=== PATIENT | male | born 1965 | race Caucasian/White ===

== ENCOUNTER → 2020-07-24 15:59 | Outpatient (BNVA) | payer OTHER, SELFPAY | PROVIDERS: PCP Internal Medicine; Visit Provider Internal Medicine | DX: Z76.89 Persons encountering health services in other specified circumstances (principal) ==

== ENCOUNTER → 2020-08-21 15:50 | Outpatient (BNVA) | payer OTHER, SELFPAY | PROVIDERS: Visit Provider Internal Medicine | DX: F11.99 Opioid use, unspecified with unspecified opioid-induced disorder (principal) | CPT/HCPCS: 80305 ==

== ENCOUNTER → 2020-09-21 10:10 | Outpatient (BNVA) | payer OTHER, SELFPAY | PROVIDERS: Visit Provider Internal Medicine | DX: Z76.89 Persons encountering health services in other specified circumstances (principal) ==

== ENCOUNTER 2020-09-22 06:59 | Emergency (ER) | payer OTHER, SELFPAY ==
--- NOTE | 2020-09-22 07:08 | ED_ITS ---
HPI - URI/Sore Throat General Chief Complaint: Upper Respiratory Symptoms Stated Complaint: FEVER,COUGH Time Seen by Provider: 09/22/20 07:06 Source: patient Mode of arrival: ambulatory Limitations: no limitations History of Present Illness HPI Narrative: patient was just seen over at our [facility] testing area came to ED as he is not feeling well and wanted to be evaluated MD elicited complaint: cough Pertinent past history: other (hx of bronchitis) Onset (ago): day(s) (since last Monday) Consistency: constant Severity: severe Exacerbating factors: exertion and supine positioning Relieving factors: other (states his 5 year old albuterol INH has helped a little) Associated symptoms: chills, cough, shortness of breath, nausea and vomiting Related Data Home Medications Medication Instructions Recorded Confirmed acetaminophen 325 mg capsule 325 mg PO QID PRN 07/20/20 simvastatin 40 mg tablet 40 mg PO BEDTIME 07/20/20 Previous Rx's Medication Instructions Recorded buprenorphine 8 mg-naloxone 2 mg 2 film SUBLINGUAL DAILY 28 Days 09/21/20 sublingual film #56 ea albuterol sulfate 2 puff INHALATION Q4-6H PRN #6.7 g 09/22/20 azithromycin See Rx Instructions .ROUTE 09/22/20 .COMPLEX #6 tab benzonatate [Tessalon Perles] 100 mg PO TID PRN #30 cap 09/22/20 hydrocodone-homatropine 5 ml PO Q6H PRN #60 ml 09/22/20 [Hydrocodone Compound] prednisone 40 mg PO DAILY 5 Days #10 tab 09/22/20 Allergies Allergy/AdvReac Type Severity Reaction Status Date / Time No Known Allergies Allergy Verified 09/22/20 07:55 [No Known Allergies*] latex tape Allergy Unknown Unknown Uncoded 09/22/20 07:55 Review of Systems Review of Systems: Constitutional : No Fever, pos Chills ENT/Mouth : No sore throat, No Rhinorrhea, No Swallowing Difficulty Eyes: No Eye Pain, No Swelling, No Redness Cardiovascular : No Chest Pain, positive SOB, No Orthopnea, no Edema Respiratory : pos Cough, pos Sputum, pos Wheezing, positive dyspnea Gastrointestinal : pos Nausea, pos Vomiting, No Diarrhea, No abdominal Pain, No Hematochezia, No Melena Genitourinary : No Dysuria, No Urinary Frequency, No Hematuria Musculoskeletal : No joint pain, pos Myalgias Skin : No Skin Lesions, No rash Neuro : No Weakness, No Numbness, No Dizziness, No Headache Psych : No Anxiety/Panic, No Depression Heme/Lymph: No Bruising, No Lymphadenopathy Endocrine : No Polyuria, No Polydipsia All other systems reviewed and are negative [facility] Past Medical History Attestation statement: The following information was validated with the patient. Medical History Opioid use disorder Family History Family History (Updated 07/20/20 @ 18:49 by Willy Valenzuela [facility]) Father Cancer Diabetes Mother No problems noted. Brother No problems noted. Son No problems noted. Social History Social History (Updated 09/22/20 @ 07:58 by Pia Moses DO) Smoking Status: Current every day smoker Substance Use Type: Former Substance User Physical Exam Vital Signs: Vital Signs: Last Vital Signs Temp 99.8 F 09/22/20 07:52 Pulse 92 09/22/20 08:10 Resp 20 09/22/20 07:52 BP 153/85 H 09/22/20 07:52 Pulse Ox 93 09/22/20 07:52 Body Mass Index 32.5 Appearance: Alert. Oriented X3. No acute distress. Eyes: Pupils equal, round and reactive to light. ENT: Pharynx normal. Neck: Normal inspection. Neck supple. CVS: Normal heart rate and rhythm. Pulses normal. Respiratory: No respiratory distress. Breath sounds diminished with rhonchi noted Abdomen: Soft and nontender. Skin: Skin warm and dry. Normal skin color. Normal skin turgor. Extremities: No lower extremity edema. No calf ttp Neuro: Oriented X 3. No motor deficit. No sensory deficit. Course Course Course Narrative: no hypoxia, stable for DC at this time MDM - URI/Sore Throat MDM Narrative Medical decision making narrative: 55 yo male with smoking history here with almost 7 days of cough and URI symptoms - 93% on RA, has rhonchi will need CXR, albuterol INH, PO steroids, already had COVID swab, he has no hypoxia at this time and requires no supplemental O2 anticipate DC home after supportive medications Discharge Plan Discharge Clinical Impression: Bronchitis, Acute viral syndrome Patient Disposition: Home, Self-Care Instructions: Viral Syndrome (ED), COVID-19 (Coronavirus Disease 2019) (ED) Additional Instructions: return to ED for any worsening symptoms or concerns you were tested for COVID we will call you with results in 2 to 4 days, wear a mask, socially distance Prescriptions: New prednisone 20 mg tablet 40 mg PO DAILY 5 Days Qty: 10 RF: 0 albuterol sulfate 90 mcg/actuation HFA aerosol inhaler 2 puff inhalation Q4-6H PRN (Reason: shortness of breath or wheezing) Qty: 6.7 RF: 0 benzonatate [Tessalon Perles] 100 mg capsule 100 mg PO TID PRN (Reason: cough) Qty: 30 RF: 0 azithromycin 250 mg tablet See Rx Instructions .ROUTE .COMPLEX Qty: 6 RF: 0 hydrocodone-homatropine [Hydrocodone Compound] 5-1.5 mg/5 mL syrup 5 ml PO Q6H PRN (Reason: cough) Qty: 60 RF: 0 No Action buprenorphine-naloxone [Suboxone] 8-2 mg film 2 film sublingual DAILY 28 Days Qty: 56 RF: 0 Stand Alone Forms: Work/School Release
[2020-09-22 07:52] VITALS: BP 153/85; PULSE 92; RESP 20; TEMP 37.7; O2SAT 93; BMI 32.5
--- NOTE | 2020-09-22 07:54 | XR_ITS ---
EXAMINATION: XR CHEST CLINICAL INFORMATION: Cough COMPARISON: Chest radiographs 04/25/2018, 01/05/2012 TECHNIQUE: Portable upright AP view of the chest was obtained. FINDINGS: There are low lung volumes with inspiration to the eighth posterior intercostal space. There is no lobar or segmental airspace consolidation. Mild coarsening of the bronchiolar markings is seen. There are no definite groundglass opacities. The costophrenic sulci are clear. The heart is normal in size. The hilar and mediastinal contours and bony structures are unremarkable. XR/XR chest 1V IMPRESSION: 1. Coarsening bronchiolar markings. Low lung volumes. No hyperinflation. 2. No airspace consolidation or definite groundglass opacities.
[2020-09-22] MEDS: Albuterol Sulfate 90 MCG 8 GM INHALER 4 PUFF INHALE (08:09)
[2020-09-22 08:10] VITALS: PULSE 92; O2SAT 93
[2020-09-22] MEDS: Acetaminophen 325 MG TABLET 650 MG PO (08:10)
[2020-09-22] MEDS: predniSONE 20 MG TABLET 60 MG PO (08:10)
[2020-09-22 08:41] VITALS: PULSE 88; RESP 18; O2SAT 93
== END 2020-09-22 08:47 | disposition home or self-care (01) ==
LOC: HO.ED 06:59
PROVIDERS: Emergency Provider Emergency Medicine; Visit Provider Internal Medicine
DX: J20.6 Acute bronchitis due to rhinovirus (principal); B34.9 Viral infection, unspecified; R50.9 Fever, unspecified; R05 Cough; Z20.828 Contact with and (suspected) exposure to other viral communicable diseases; Z79.899 Other long term (current) drug therapy; F17.200 Nicotine dependence, unspecified, uncomplicated; Z71.6 Tobacco abuse counseling
CPT/HCPCS: 71045; 94640; 99282; 99284; C9803; U0003

== ENCOUNTER → 2020-10-19 15:57 | Outpatient (BNVA) | payer OTHER, SELFPAY | PROVIDERS: Visit Provider Internal Medicine | DX: Z76.89 Persons encountering health services in other specified circumstances (principal) ==

== ENCOUNTER → 2020-11-16 15:49 | Outpatient (BNVA) | payer OTHER, SELFPAY | PROVIDERS: Visit Provider Internal Medicine | DX: F11.99 Opioid use, unspecified with unspecified opioid-induced disorder (principal) | CPT/HCPCS: 80305 ==

== ENCOUNTER → 2020-12-14 14:04 | Outpatient (BNVA) | payer OTHER, SELFPAY | PROVIDERS: Visit Provider Internal Medicine | DX: Z51.81 Encounter for therapeutic drug level monitoring (principal) ==

== ENCOUNTER → 2021-01-11 15:49 | Outpatient (BNVA) | payer OTHER, SELFPAY | PROVIDERS: Visit Provider Internal Medicine | DX: F11.99 Opioid use, unspecified with unspecified opioid-induced disorder (principal) | CPT/HCPCS: 80305 ==

== ENCOUNTER 2021-02-03 09:05 | Outpatient (REF) | payer OTHER, SELFPAY ==
[2021-02-03 09:43] LABS: COVID-19 Test Positive (Negative); IDNOW Serial# 55D5AD1C
== END 2021-02-03 09:06 | disposition home or self-care (01) ==
LOC: HO.LAB 09:05
PROVIDERS: Visit Provider Internal Medicine
DX: Z20.822 Contact with and (suspected) exposure to COVID-19 (principal)
CPT/HCPCS: 36415; 87635; C9803

== ENCOUNTER → 2021-03-08 15:35 | Outpatient (BNVA) | payer OTHER, SELFPAY | PROVIDERS: Visit Provider Internal Medicine | DX: F11.99 Opioid use, unspecified with unspecified opioid-induced disorder (principal) | CPT/HCPCS: 80305 ==

== ENCOUNTER → 2021-05-03 15:50 | Outpatient (BNVA) | payer OTHER, SELFPAY | PROVIDERS: Visit Provider Internal Medicine | DX: Z51.81 Encounter for therapeutic drug level monitoring (principal); F11.99 Opioid use, unspecified with unspecified opioid-induced disorder | CPT/HCPCS: 80305 ==

== ENCOUNTER 2021-06-01 10:06 | Outpatient (REF) | payer OTHER, SELFPAY ==
[2021-06-01 11:27] LABS: MANUAL DIFF FLAG NO
[2021-06-01 11:34] LABS: Basophils Absolute Auto 0.1 X10*3/uL (0.0-0.2); Basophils Percent Auto 0.6 % (0-2); Eosinophils Absolute Auto 0.7 X10*3/uL (0.0-0.4); Eosinophils Percent Auto 8.3 % (0-4); Hematocrit 45.2 % (42-52); Hemoglobin 15.7 g/dl (14.0-18.0); Imm Gran Abs Auto 0.02 X10*3/uL (0.00-0.03); Imm Gran Pct Auto 0.2 % (0.0-0.4); Lymphocytes Absolute Auto 2.8 X10*3/uL (1.2-4.9); Lymphocytes Percent Auto 30.9 % (20-40); Mean Corpuscular HGB Conc 34.7 g/dl (31.0-36.0); Mean Corpuscular Hemoglobin 31.2 pg (27.0-33.0); Mean Corpuscular Volume 89.7 fL (80-98); Mean Platelet Volume 10.2 fL (9.4-12.4); Monocytes Absolute Auto 0.8 X10*3/uL (0.1-1.2); Monocytes Percent Auto 8.4 % (2-11); Neutrophils Absolute Auto 4.6 X10*3/uL (2.0-8.3); Neutrophils Percent Auto 51.6 % (45-73); Platelet Count 307 X10*3/uL (160-400); Red Blood Count 5.04 X10*6/uL (4.60-5.80); Red Cell Distribution Width 12.7 % (11.0-16.0); White Blood Count 8.9 X10*3/uL (4.8-10.8)
[2021-06-01 11:59] LABS: Alanine Aminotransferase 35 U/L (0-40); Alkaline Phosphatase 86 U/L (39-117); Anion Gap 13 (12-20); Aspartate Amino Transferase 33 U/L (5-37); Bilirubin Direct 0.4 mg/dL (0.0-0.5); Blood Urea Nitrogen 15 mg/dL (9-16); Carbon Dioxide 26 mmol/L (22-29); Chloride 104 mmol/L (96-108); Cholesterol 222 mg/dL; Estimated Glomerular Filt Rate > 60; Glucose Fasting 104 mg/dL (60-99); HDL Cholesterol 31 mg/dL; LDL Cholesterol Calculated 158 mg/dl; Potassium 4.4 mmol/L (3.3-5.1); Sodium 139 mmol/L (135-145); Total Protein 6.9 g/dL (6.5-8.0); Triglycerides 165 mg/dL
[2021-06-01 12:06] LABS: Prostate Specific Antigen 1.07 ng/mL (<0.05-4.0)
== END 2021-06-01 10:07 | disposition home or self-care (01) ==
LOC: HO.HMGCLDS 10:06
PROVIDERS: PCP Internal Medicine; Visit Provider Internal Medicine
DX: Z00.00 Encounter for general adult medical examination without abnormal findings (principal); Z12.5 Encounter for screening for malignant neoplasm of prostate; R53.83 Other fatigue; E78.5 Hyperlipidemia, unspecified
CPT/HCPCS: 36415; 80051; 80061; 80076; 82565; 82947; 84153; 84520; 85025

== ENCOUNTER → 2021-07-02 15:46 | Outpatient (BNVA) | payer OTHER, SELFPAY | PROVIDERS: Visit Provider Internal Medicine | DX: F11.20 Opioid dependence, uncomplicated (principal); Z51.81 Encounter for therapeutic drug level monitoring; Z79.899 Other long term (current) drug therapy | CPT/HCPCS: 80305 ==

== ENCOUNTER → 2021-08-27 15:54 | Outpatient (BNVA) | payer OTHER, SELFPAY | PROVIDERS: Visit Provider Internal Medicine | DX: Z51.81 Encounter for therapeutic drug level monitoring (principal); F11.90 Opioid use, unspecified, uncomplicated | CPT/HCPCS: 80305 ==

== ENCOUNTER 2021-09-23 06:07 | Outpatient (REF) | payer OTHER, SELFPAY ==
[2021-09-23 11:45] LABS: Alanine Aminotransferase 33 U/L (0-40); Alkaline Phosphatase 87 U/L (39-117); Aspartate Amino Transferase 28 U/L (5-37); Bilirubin Direct 0.5 mg/dL (0.0-0.5); Bilirubin Total 1.5 mg/dL (0.0-1.0); Cholesterol 155 mg/dL; HDL Cholesterol 29 mg/dL; LDL Cholesterol Calculated 96 mg/dl; Total Protein 6.9 g/dL (6.5-8.0); Triglycerides 152 mg/dL
[2021-09-23 11:57] LABS: Estimated Average Glucose 123 mg/dL; Hemoglobin A1c % 5.9 %
== END 2021-09-23 06:08 | disposition home or self-care (01) ==
LOC: HO.HMGCLDS 06:07
PROVIDERS: PCP Internal Medicine; Visit Provider Internal Medicine
DX: E78.5 Hyperlipidemia, unspecified (principal); E78.00 Pure hypercholesterolemia, unspecified; E11.9 Type 2 diabetes mellitus without complications
CPT/HCPCS: 36415; 80061; 80076; 83036

== ENCOUNTER 2021-10-18 11:34 | Outpatient (REF) | payer OTHER, SELFPAY ==
[2021-10-18 14:38] LABS: COVID-19 Test Negative (Negative); IDNOW Serial# 16C4AD1C
== END 2021-10-18 11:35 | disposition home or self-care (01) ==
LOC: HO.LAB 11:34
PROVIDERS: Visit Provider Internal Medicine
DX: Z20.822 Contact with and (suspected) exposure to COVID-19 (principal)
CPT/HCPCS: 36415; 87635; C9803

== ENCOUNTER → 2021-10-27 15:37 | Outpatient (BNVA) | payer OTHER, SELFPAY | PROVIDERS: Visit Provider Internal Medicine | DX: F11.20 Opioid dependence, uncomplicated (principal); Z51.81 Encounter for therapeutic drug level monitoring; Z79.899 Other long term (current) drug therapy | CPT/HCPCS: 80305 ==

== ENCOUNTER → 2021-12-22 15:46 | Outpatient (BNVA) | payer OTHER, SELFPAY | PROVIDERS: Visit Provider Internal Medicine | DX: F11.90 Opioid use, unspecified, uncomplicated (principal); Z91.040 Latex allergy status; Z51.81 Encounter for therapeutic drug level monitoring | CPT/HCPCS: 80305 ==

== ENCOUNTER → 2022-02-16 15:50 | Outpatient (BNVA) | payer OTHER, SELFPAY | PROVIDERS: Visit Provider Internal Medicine | DX: Z51.81 Encounter for therapeutic drug level monitoring (principal); F11.20 Opioid dependence, uncomplicated | CPT/HCPCS: 80305 ==

== ENCOUNTER → 2022-04-13 15:06 | Outpatient (BNVA) | payer OTHER, SELFPAY | PROVIDERS: Visit Provider Internal Medicine | DX: Z51.81 Encounter for therapeutic drug level monitoring (principal); F11.20 Opioid dependence, uncomplicated | CPT/HCPCS: 80305 ==

== ENCOUNTER → 2022-11-23 15:44 | Outpatient (BNVA) | payer OTHER, SELFPAY | PROVIDERS: PCP Internal Medicine; Visit Provider Nurse Practitioner Psychiatric/Mental Health | DX: Z51.81 Encounter for therapeutic drug level monitoring (principal); F11.20 Opioid dependence, uncomplicated | CPT/HCPCS: 80305 ==

== ENCOUNTER → 2023-01-18 15:57 | Outpatient (BNVA) | payer OTHER, SELFPAY | PROVIDERS: PCP Internal Medicine; Visit Provider Nurse Practitioner Psychiatric/Mental Health | DX: F11.20 Opioid dependence, uncomplicated (principal); Z51.81 Encounter for therapeutic drug level monitoring; Z79.899 Other long term (current) drug therapy | CPT/HCPCS: 80305 ==

== ENCOUNTER 2023-03-13 15:52 | Outpatient (REF) | payer OTHER, SELFPAY ==
[2023-03-13 18:25] LABS: Alanine Aminotransferase 40 U/L (0-40); Albumin Level 4.4 g/dL (3.5-5.0); Alkaline Phosphatase 95 U/L (39-117); Aspartate Amino Transferase 32 U/L (5-37); Bilirubin Direct 0.2 mg/dL (0.0-0.5); Bilirubin Total 0.8 mg/dL (0.0-1.0); Total Protein 6.7 g/dL (6.5-8.0)
== END 2023-03-13 15:53 | disposition home or self-care (01) ==
LOC: HO.LAB 15:52
PROVIDERS: PCP Internal Medicine; Visit Provider Nurse Practitioner Psychiatric/Mental Health
DX: Z79.899 Other long term (current) drug therapy (principal)
CPT/HCPCS: 36415; 80076

== ENCOUNTER → 2023-03-15 15:59 | Outpatient (BNVA) | payer OTHER, SELFPAY | PROVIDERS: PCP Internal Medicine; Visit Provider Nurse Practitioner Psychiatric/Mental Health | DX: Z51.81 Encounter for therapeutic drug level monitoring (principal); Z79.899 Other long term (current) drug therapy ==

== ENCOUNTER 2023-05-17 15:43 | Outpatient (AMB) | payer OTHER, SELFPAY ==
[2023-05-17 15:52] VITALS: BP 134/82; O2SAT 96
--- NOTE | 2023-05-17 15:52 | A.OFFVIS_ITS ---
Intake Vital Signs 05/17/23 15:52 BP 134/82 Blood Pressure Location Lt brachial Position Sitting Pulse Oximetry (%) 96 Intake Visit Reasons: MAT Visit Allergies No Known Allergies [No Known Allergies*] Allergy (Verified 03/15/23 16:10) latex tape Allergy (Unknown, Uncoded 03/15/23 16:10) Unknown HPI MAT Visit HPI Details Patient presents for follow up Currently prescribed Suboxone 8mg BID Tolerating dose No questions or concerns at this time PFSH Medical History High cholesterol Opioid use disorder Surgical History History of hand surgery History of nephrectomy, left Family History Father Cancer Diabetes Mother No problems noted. Brother No problems noted. Son No problems noted. Social History Substance Use Type: Former Substance User Review of Systems Const Reports as per HPI and Reports no additional complaints Physical Exam Vital Signs: Last Vital Signs BP 134/82 05/17/23 15:52 Pulse Ox 96 05/17/23 15:52 Const General: cooperative, healthy appearing, comfortable, well developed and alert Nutritional Appearance: well nourished Orientation/consciousness: patient oriented x3 Limitations: no limitations Neuro General: patient oriented x3 Psych Appearance: well kempt Mental Status: mental status grossly normal Speech and movement: Normal speech and movement present Affect: normal affect Attitude: cooperative Thought process: Normal thought process present Thought content: Normal thought content present Insight: Good insight present (Psych) Judgement: Good judgement present (Psych) Assessment & Plan Assessment & Plan (1) Opioid use disorder, moderate, in sustained remission: Code(s): F11.21 - Opioid dependence, in remission Plan: * continue suboxone at current dose * follow up 8 weeks Medications: Refilled buprenorphine-naloxone 8-2 mg (Suboxone) 1 film sublingual BID 60 ea 1RF 30 days Coding Level of Care Code Est Pt Level 3 (06747) Diagnoses Opioid use disorder, moderate, in sustained remission F11.21
== END 2023-05-17 16:45 | disposition home or self-care (01) ==
LOC: HO.HCC 15:43
PROVIDERS: PCP Internal Medicine; Visit Provider Nurse Practitioner Psychiatric/Mental Health
DX: F11.21 Opioid dependence, in remission (principal)
CPT/HCPCS: 99213

== ENCOUNTER → 2023-05-17 15:43 | Outpatient (BNVA) | payer OTHER, SELFPAY | PROVIDERS: PCP Internal Medicine; Visit Provider Nurse Practitioner Psychiatric/Mental Health | DX: Z51.81 Encounter for therapeutic drug level monitoring (principal); Z79.899 Other long term (current) drug therapy ==

== ENCOUNTER 2023-07-24 15:43 | Outpatient (AMB) | payer OTHER, SELFPAY ==
--- NOTE | 2023-07-24 15:43 | A.OFFVIS_ITS ---
Intake Vital Signs 07/24/23 15:47 BP 132/78 Blood Pressure Location Lt radial Position Sitting Pulse 84 Pulse Source Pulse Oximeter Pulse Oximetry (%) 96 Oxygen Delivery Method Room Air Intake Visit Reasons: MAT Visit Intake Note: the patient presents for a mat visit [employer] Manager Required: No Allergies No Known Allergies [No Known Allergies*] Allergy (Verified 07/24/23 15:48) latex tape Allergy (Unknown, Uncoded 07/24/23 15:48) Unknown Do you need a note to return to daycare/school/sports/work: No HPI MAT Visit HPI Details Pt presents for OUD treatment follow up Currently being prescribed Suboxone 8mg BID Denies any side effects related to medication no questions or concerns at this time PFSH Medical History High cholesterol Opioid use disorder Surgical History History of hand surgery History of nephrectomy, left Family History Father Cancer Diabetes Mother No problems noted. Brother No problems noted. Son No problems noted. Social History Substance Use Type: Former Substance User Review of Systems Const Reports as per HPI and Reports no additional complaints Physical Exam Vital Signs: Last Vital Signs Pulse 84 07/24/23 15:47 BP 132/78 07/24/23 15:47 Pulse Ox 96 07/24/23 15:47 Oxygen Delivery Method Room Air 07/24/23 15:47 Const General: cooperative, healthy appearing, comfortable, well developed and alert Nutritional Appearance: well nourished Orientation/consciousness: patient oriented x3 Limitations: no limitations Neuro General: patient oriented x3 Psych Appearance: well kempt Mental Status: mental status grossly normal Speech and movement: Normal speech and movement present Affect: normal affect Attitude: cooperative Thought process: Normal thought process present Thought content: Normal thought content present Insight: Good insight present (Psych) Judgement: Good judgement present (Psych) Assessment & Plan Assessment & Plan (1) Opioid use disorder, moderate, in sustained remission: Code(s): F11.21 - Opioid dependence, in remission Plan: * continue suboxone at current dose * follow up 8 weeks Medications: Refilled buprenorphine-naloxone 8-2 mg (Suboxone) 1 film sublingual BID 30 days 60 ea 1RF Coding Level of Care Code Est Pt Level 3 (50599) Diagnoses Opioid use disorder, moderate, in sustained remission F11.21
[2023-07-24 15:47] VITALS: BP 132/78; PULSE 84; O2SAT 96
== END 2023-07-24 16:09 | disposition home or self-care (01) ==
LOC: HO.HCC 15:43
PROVIDERS: PCP Internal Medicine; Visit Provider Nurse Practitioner Psychiatric/Mental Health
DX: F11.21 Opioid dependence, in remission (principal)
CPT/HCPCS: 99213

== ENCOUNTER → 2023-07-24 15:43 | Outpatient (BNVA) | payer OTHER, SELFPAY | PROVIDERS: PCP Internal Medicine; Visit Provider Nurse Practitioner Psychiatric/Mental Health | DX: Z51.81 Encounter for therapeutic drug level monitoring (principal); Z79.899 Other long term (current) drug therapy ==

== ENCOUNTER 2023-10-17 15:49 | Outpatient (AMB) | payer OTHER, SELFPAY ==
--- NOTE | 2023-10-17 15:52 | MHC.AM.SUB ---
Intake Vital Signs 10/17/23 16:00 BP 136/64 Blood Pressure Location Lt radial Position Sitting Pulse 87 Pulse Source Pulse Oximeter Pulse Oximetry (%) 94 Oxygen Delivery Method Room Air Intake Visit Reasons: MAT Visit Allergies No Known Allergies [No Known Allergies*] Allergy (Verified 07/24/23 15:48) latex tape Allergy (Unknown, Uncoded 07/24/23 15:48) Unknown HPI MAT Visit HPI Details Pt presents for follow up Currently being prescribed Suboxone 8mg BID Denies any side effects related to medication No questions or concerns at this time [facility] Medical History (Updated 10/17/23 @ 17:41 by Ellie Rodríguez CNP) High cholesterol Opioid use disorder Surgical History History of nephrectomy, left History of hand surgery Family History Father Cancer Diabetes Mother No problems noted. Brother No problems noted. Son No problems noted. Social History Substance Use Type: Former Substance User Review of Systems Const Reports as per HPI and Reports no additional complaints Physical Exam Vital Signs: Last Vital Signs Pulse 87 10/17/23 16:00 BP 136/64 10/17/23 16:00 Pulse Ox 94 10/17/23 16:00 Oxygen Delivery Method Room Air 10/17/23 16:00 Const General: cooperative, healthy appearing, comfortable, well developed and alert Nutritional Appearance: well nourished Orientation/consciousness: patient oriented x3 Limitations: no limitations Neuro General: patient oriented x3 Psych Appearance: well kempt Mental Status: mental status grossly normal Speech and movement: Normal speech and movement present Affect: normal affect Attitude: cooperative Thought process: Normal thought process present Thought content: Normal thought content present Insight: Good insight present (Psych) Judgement: Good judgement present (Psych) Assessment & Plan Assessment & Plan (1) Opioid use disorder, moderate, in sustained remission: Code(s): F11.21 - Opioid dependence, in remission Plan: continue suboxone at current dose follow up 3 months Coding Level of Care Code Est Pt Level 3 (52369) Diagnoses Opioid use disorder, moderate, in sustained remission F11.21
[2023-10-17 16:00] VITALS: BP 136/64; PULSE 87; O2SAT 94
== END 2023-10-17 16:36 | disposition home or self-care (01) ==
PROVIDERS: PCP Internal Medicine; Visit Provider Nurse Practitioner Psychiatric/Mental Health
DX: F11.21 Opioid dependence, in remission (principal)
CPT/HCPCS: 99213

== ENCOUNTER → 2023-10-17 15:49 | Outpatient (BNVA) | payer OTHER, SELFPAY | PROVIDERS: PCP Internal Medicine; Visit Provider Nurse Practitioner Psychiatric/Mental Health | DX: Z51.81 Encounter for therapeutic drug level monitoring (principal); Z79.899 Other long term (current) drug therapy ==

== ENCOUNTER 2024-01-15 15:58 | Outpatient (AMB) | payer OTHER, SELFPAY ==
--- NOTE | 2024-01-15 16:02 | A.OFFVISCC_ITS ---
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 Allergies No Known Allergies [No Known Allergies*] Allergy (Verified 01/15/24 16:08) latex tape Allergy (Unknown, Uncoded 01/15/24 16:08) Unknown Do you need a note to return to daycare/school/sports/work: No HPI mat visit HPI Details Patient presents for treatment and follow up Has no concerns for recovery at this time Denies any side effects Tolerating suboxone 8mg BID [facility] Medical History (Updated 10/17/23 @ 17:41 by Ellie Rodríguez CNP) High cholesterol Opioid use disorder Surgical History History of nephrectomy, left History of hand surgery Family History Father Cancer Diabetes Mother No problems noted. Brother No problems noted. Son No problems noted. Social History Substance Use Type: Former Substance User Review of Systems Const Reports as per HPI Physical Exam Vital Signs: Last Vital Signs Pulse 86 01/15/24 16:07 BP 128/78 01/15/24 16:07 Pulse Ox 95 01/15/24 16:07 Oxygen Delivery Method Room Air 01/15/24 16:07 Const General: cooperative and no acute distress Resp Effort & Inspection: normal respiratory effort and able to speak in complete sentences Psych Appearance: grossly normal Mental Status: mental status grossly normal Speech and movement: Normal speech and movement present Affect: normal affect Attitude: cooperative Assessment & Plan Assessment & Plan (1) Opioid use disorder, moderate, in sustained remission: Code(s): F11.21 - Opioid dependence, in remission Plan: -Continue suboxone 8mg BID -Mass pat reviewed -GINA obtained to request for updated labwork with PCP -Follow up 3 months Medications: Refilled buprenorphine-naloxone 8-2 mg (Suboxone) 1 film sublingual BID 30 days 60 ea 2RF Coding Level of Care Code Est Pt Level 3 (37199) Diagnoses Opioid use disorder, moderate, in sustained remission F11.21
[2024-01-15 16:07] VITALS: BP 128/78; PULSE 86; O2SAT 95
== END 2024-01-15 16:17 | disposition home or self-care (01) ==
PROVIDERS: PCP Internal Medicine; Visit Provider Nurse Practitioner Family
DX: F11.21 Opioid dependence, in remission (principal)
CPT/HCPCS: 99213

== ENCOUNTER → 2024-01-15 15:58 | Outpatient (BNVA) | payer OTHER, SELFPAY | PROVIDERS: PCP Internal Medicine; Visit Provider Nurse Practitioner Family ==

== ENCOUNTER 2024-04-08 15:51 | Outpatient (AMB) | payer OTHER, SELFPAY ==
[2024-04-08 15:59] VITALS: BP 160/90; PULSE 89; RESP 20; O2SAT 98
--- NOTE | 2024-04-08 15:59 | MHC.AM.SUB ---
Vital Signs 04/08/24 15:59 BP 160/90 H Blood Pressure Location Lt brachial Position Sitting Respiration 20 Pulse 89 Pulse Source Pulse Oximeter Pulse Oximetry (%) 98 Intake Visit Reasons: mat visit Allergies No Known Allergies [No Known Allergies*] Allergy (Verified 01/15/24 16:08) latex tape Allergy (Unknown, Uncoded 01/15/24 16:08) Unknown HPI HPI mat visit: Details: Patient presents for treatment and follow up Has no concerns for recovery at this time Denies any side effects Tolerating suboxone 8mg BID HPI Comments Details: Patient presents for MAT visit [facility] Medical History (Updated 10/17/23 @ 17:41 by Ellie Rodríguez CNP) High cholesterol Opioid use disorder Surgical History History of nephrectomy, left History of hand surgery Family History Father Cancer Diabetes Mother No problems noted. Brother No problems noted. Son No problems noted. Social History Substance Use Type: Former Substance User Review of Systems Const Reports as per HPI Physical Exam Vital Signs: Last Vital Signs Pulse 89 04/08/24 15:59 Resp 20 04/08/24 15:59 BP 160/90 H 04/08/24 15:59 Pulse Ox 98 04/08/24 15:59 Const General: cooperative and no acute distress Resp Effort & Inspection: normal respiratory effort and able to speak in complete sentences Psych Appearance: grossly normal Mental Status: mental status grossly normal Speech and movement: Normal speech and movement present Affect: normal affect Attitude: cooperative Thought process: Normal thought process present Assessment & Plan Assessment & Plan (1) Opioid use disorder, moderate, in sustained remission: Code(s): F11.21 - Opioid dependence, in remission Category: Medical Plan: -Continue suboxone 8mg BID -Mass pat reviewed -Follow up 3 months Medications: Refilled buprenorphine-naloxone 8-2 mg (Suboxone) 1 film sublingual BID 60 ea 2RF 30 days
== END 2024-04-08 16:11 | disposition home or self-care (01) ==
PROVIDERS: PCP Internal Medicine; Visit Provider Nurse Practitioner Family
DX: F11.21 Opioid dependence, in remission (principal)
CPT/HCPCS: 99213

== ENCOUNTER → 2024-04-08 15:51 | Outpatient (BNVA) | payer OTHER, SELFPAY | PROVIDERS: PCP Internal Medicine; Visit Provider Nurse Practitioner Family | DX: F11.20 Opioid dependence, uncomplicated (principal) ==

== ENCOUNTER 2024-07-01 15:48 | Outpatient (AMB) | payer OTHER, SELFPAY ==
--- NOTE | 2024-07-01 16:17 | A.OFFVISCC_ITS ---
Intake Visit Reasons: mat visit Allergies No Known Allergies [No Known Allergies*] Allergy (Verified 01/15/24 16:08) latex tape Allergy (Unknown, Uncoded 01/15/24 16:08) Unknown HPI HPI mat visit: Details: Patient presents for follow up Currently prescribed Suboxone 8mg BID Tolerating current dose No issues related to recovery Has been getting treatment for macular degeneration Hoping to get this completed so he can start driving in the evening again reporting no other changes to medical history [facility] Medical History (Updated 10/17/23 @ 17:41 by Ellie Rodríguez CNP) High cholesterol Opioid use disorder Surgical History History of nephrectomy, left History of hand surgery Family History Father Cancer Diabetes Mother No problems noted. Brother No problems noted. Son No problems noted. Social History Substance Use Type: Former Substance User Review of Systems Const Reports as per HPI Physical Exam Const General: cooperative, healthy appearing, no acute distress and well groomed Assessment & Plan Assessment & Plan (1) Opioid use disorder, moderate, in sustained remission: Code(s): F11.21 - Opioid dependence, in remission Category: Medical Plan: * continue suboxone at current dose * follow up 4 months * encouraged to call office should he need to be seen before that
== END 2024-07-01 16:38 | disposition home or self-care (01) ==
PROVIDERS: PCP Internal Medicine; Visit Provider Nurse Practitioner Psychiatric/Mental Health
DX: F11.21 Opioid dependence, in remission (principal)
CPT/HCPCS: 99213

== ENCOUNTER → 2024-07-01 15:48 | Outpatient (BNVA) | payer OTHER, SELFPAY | PROVIDERS: PCP Internal Medicine; Visit Provider Nurse Practitioner Psychiatric/Mental Health | DX: F11.21 Opioid dependence, in remission (principal) ==

== ENCOUNTER 2024-11-04 15:55 | Outpatient (AMB) | payer OTHER, SELFPAY ==
--- NOTE | 2024-11-04 15:57 | A.OFFVISCC_ITS ---
Intake Visit Reasons: mat visit Allergies No Known Allergies [No Known Allergies*] Allergy (Verified 01/15/24 16:08) latex tape Allergy (Unknown, Uncoded 01/15/24 16:08) Unknown HPI HPI mat visit: Details: Patient presents for follow up Currently prescribed Suboxone 8mg BID Tolerating current dose denies any issues with medication Review of Systems Const Reports as per HPI and Reports no additional complaints Physical Exam Const General: cooperative, healthy appearing, no acute distress and well groomed [facility] Medical History (Updated 10/17/23 @ 17:41 by Ellie Rodríguez CNP) High cholesterol Opioid use disorder Surgical History History of nephrectomy, left History of hand surgery Family History Father Cancer Diabetes Mother No problems noted. Brother No problems noted. Son No problems noted. Social History Substance Use Type: Former Substance User Assessment & Plan Assessment & Plan (1) Opioid use disorder, moderate, in sustained remission: Code(s): F11.21 - Opioid dependence, in remission Category: Medical Plan: * continue suboxone at current dose * follow up 4 months * encouraged to call office should he need to be seen before that Medications: Refilled buprenorphine-naloxone 8-2 mg (Suboxone) 1 film sublingual BID 60 ea 2RF 30 days
== END 2024-11-04 16:30 | disposition home or self-care (01) ==
PROVIDERS: PCP Internal Medicine; Visit Provider Nurse Practitioner Psychiatric/Mental Health
DX: F11.21 Opioid dependence, in remission (principal)
CPT/HCPCS: 99213

== ENCOUNTER → 2024-11-04 15:55 | Outpatient (BNVA) | payer OTHER, SELFPAY | PROVIDERS: PCP Internal Medicine; Visit Provider Nurse Practitioner Psychiatric/Mental Health | DX: F11.21 Opioid dependence, in remission (principal) ==

== ENCOUNTER 2025-02-03 15:56 | Outpatient (AMB) | payer OTHER, SELFPAY ==
--- NOTE | 2025-02-03 15:56 | MHC.OFFVIS ---
Vital Signs 02/03/25 16:01 Height 5 ft 7 in Weight 227 lb BMI 35.5 Pulse 97 Pulse Source Pulse Oximeter Pulse Oximetry (%) 97 Oxygen Delivery Method Room Air Intake Visit Reasons: MAT Allergies No Known Allergies [No Known Allergies*] Allergy (Verified 02/03/25 16:02) latex tape Allergy (Unknown, Uncoded 01/15/24 16:08) Unknown HPI HPI MAT: Details: He is doing well. He takes Suboxone 8/2 bid He has been Hepatitis C negative. He will let us know when needs more Suboxone as is on every three month visit interval. [facility] Medical History High cholesterol Opioid use disorder Surgical History History of nephrectomy, left History of hand surgery Family History Father Cancer Diabetes Mother No problems noted. Brother No problems noted. Son No problems noted. Social History Substance Use Type: Former Substance User Review of Systems Const All systems reviewed & are unremarkable except as noted in HPI and below Physical Exam Vital Signs: Last Vital Signs Pulse 97 02/03/25 16:01 Pulse Ox 97 02/03/25 16:01 Oxygen Delivery Method Room Air 02/03/25 16:01 BMI result Body Mass Index 35.5 Results AMB 14 Panel Urine Drug Screen Urine Marijuana (THC) Negative Last Edit by Nancy Gomez CMA on 02/03/25 16:04 Urine Cocaine Negative Last Edit by Nancy Gomez CMA on 02/03/25 16:04 Urine Morphine Negative Last Edit by Nancy Gomez CMA on 02/03/25 16:04 Urine Methamphetamine Negative Last Edit by Nancy Gomez CMA on 02/03/25 16:04 Urine Amphetamine Negative Last Edit by Nancy Gomez CMA on 02/03/25 16:04 Urine Benzodiazepine Negative Last Edit by Nancy Gomez CMA on 02/03/25 16:04 Urine Barbiturates Negative Last Edit by Nancy Gomez CMA on 02/03/25 16:04 Urine Methadone Negative Last Edit by Nancy Gomez CMA on 02/03/25 16:04 Urine Buprenorphine Positive Last Edit by Nancy Gomez CMA on 02/03/25 16:04 Urine Tricyclic Antidepressant Negative Last Edit by Nancy Gomez CMA on 02/03/25 16:04 Urine MDMA Negative Last Edit by Nancy Gomez CMA on 02/03/25 16:04 Urine Oxycodone Negative Last Edit by Nancy Gomez CMA on 02/03/25 16:04 Urine Phencyclidine Negative Last Edit by Nancy Gomez CMA on 02/03/25 16:04 Urine Propoxyphene Negative Last Edit by Nancy Gomez CMA on 02/03/25 16:04 Results Reviewed Results Reviewed: Laboratory Last Values POC Urine Buprenorphine Positive 02/03/25 16:02 POC Urine Morphine Negative 02/03/25 16:02 POC Urine Oxycodone Negative 02/03/25 16:02 POC Urine Methadone Negative 02/03/25 16:02 POC Urine Propoxyphene Negative 02/03/25 16:02 POC Urine Barbiturates Negative 02/03/25 16:02 POC U Tricyclic Antidpr Negative 02/03/25 16:02 POC Urine PCP Negative 02/03/25 16:02 POC Ur Amphetamines Negative 02/03/25 16:02 POC Ur Methamphetamine Negative 02/03/25 16:02 POC Urine MDMA Negative 02/03/25 16:02 POC Ur Benzodiazepine Negative 02/03/25 16:02 POC Urine Cocaine Negative 02/03/25 16:02 POC Ur Marijuana (THC) Negative 02/03/25 16:02 Assessment & Plan Assessment & Plan (1) Opioid use disorder, moderate, in sustained remission: Comment: He is doing well Code(s): F11.21 - Opioid dependence, in remission Category: Medical Plan: See in 3 months. Refill any meds needed,patient will call. Orders: Orders AMB 14 Panel Urine Drug Screen Today Z51.81 - Encounter for therapeutic drug level monitoring Coding Level of Care Code Est Pt Level 3 (38681) Diagnoses Opioid use disorder, moderate, in sustained remission F11.21
[2025-02-03 16:01] VITALS: PULSE 97; O2SAT 97; BMI 35.5
--- OUTSIDE RECORDS SUMMARY | 2025-02-03 18:15 | XMS_ITS | Continuity of Care Document ---
Author Organization [facility] Address [address] [place] [address]- Care Team Providers Care News Broadcaster Name Role Phone Not on Staff, PCP Primary Care Physician Unavail able Encounter [facility] EASTR [id number] Date(s): 12/30/24 - 01/29/25 [facility] [address] [address]- Encounter Type: Triage Patient Care team information Care Team Personnel Name: Not on Staff, PCP Position: [facility] Physician (General Medicine) Member Role: PCP Care Team Related Persons Name: UMA PELLETIER Insurance Providers Guarantor name: ELOINA Health Plan Information #: 1 Payer: [facility] FF NON [employer] HMO Member Number: NA Policy Number: NA Group Number: NA
--- OUTSIDE RECORDS SUMMARY | 2025-02-03 18:15 | XMS_ITS | Patient Health Record ---
Author Organization [facility] Address [address] [place] [address] Care Team Providers Care Compounder Name Role Phone Gregory Barone MD Primary Care Provider UnavailAmrit Platt [phone] Allergies No Known Allergies Reason For Referral No Information Medications Medication SIG (Take, Route, Fr equency, Duration) Notes Start Date End Date Status Lipitor 20 MG 1 tablet Orally Once a day for 30 day(s) Active Ibuprofen 800 MG 1 tablet with food o r milk as needed Orally every 8 hrs Active ZyrTEC 10 MG 1 tablet Orally Once a day for 30 day(s) Active Immunizations Vaccine Route Administration Date Status Comme nts Influenza Unknown 04/06/2022 Refused Social History Tobacco Use: Social History Observation Description Date Details (start date - stop date) Current Smoker NA - NA Tobacco Use/Smoking Question Answer Notes Patient is a current smoker Alcohol Screen Question Answer Notes Did you have a drink containing alcohol in the p ast year? No Points 0 Interpretation Negative Section Notes: Smoker 1 ppd; no sig alcohol Problems Problem Type SNOMED Code ICD Code Onset Dates Problem Status W/U Status Risk Notes Problem Screening for malignant neoplasm of colon (498940476) Encounter for screening for malignant neoplasm of colon (Z12.11) Active confirmed Problem Pre-procedure evaluation check (245183502) Encounter for other preprocedural examination (Z01.818) Active confirmed Plan Of Treatment Future Test Test Name Order Date COLONOSCOPY 04/06/2022 Insurance Providers Payer Name Payer Address Payer Phone Subscriber Number Group Number Insured Name Patient Relationship to Insured Coverage Start Date Coverage End Date [facility] [address] [facility] [phone] [id number] JONATHAN PELLETIER Self - patient is the insured Medical (General) History Medical History History ICD Code Renal cancer on the left--surgery as bel ow Hyperlipidemia Allergies Denies [place],DM,CVA,Lung disease,renal dise ase Surgical History Surgery Date(Month/Year) Right hand surgery for osteomyelitis Left nephrectomy for cancer in 2007
== END 2025-02-03 16:32 | disposition home or self-care (01) ==
LOC: HO.HCC 15:56
PROVIDERS: PCP Internal Medicine; Visit Provider Internal Medicine
DX: Z51.81 Encounter for therapeutic drug level monitoring (principal); F11.21 Opioid dependence, in remission
CPT/HCPCS: 99213

== ENCOUNTER → 2025-02-03 15:56 | Outpatient (BNVA) | payer OTHER, SELFPAY | PROVIDERS: PCP Internal Medicine; Visit Provider Internal Medicine | DX: F11.21 Opioid dependence, in remission (principal) | CPT/HCPCS: 80307 ==

== ENCOUNTER 2025-05-05 15:59 | Outpatient (AMB) | payer OTHER, SELFPAY ==
[2025-05-05 16:06] VITALS: BP 150/82; PULSE 94; O2SAT 96; BMI 35.1
--- NOTE | 2025-05-05 16:06 | MHC.OFFVIS ---
Vital Signs 05/05/25 16:06 Height 5 ft 7 in Weight 224 lb BMI 35.1 BP 150/82 H Pulse 94 Pulse Oximetry (%) 96 Intake Visit Reasons: MAT Allergies No Known Allergies (No Known Allergies*) Allergy (Verified 02/03/25 16:02) latex tape Allergy (Unknown, Uncoded 05/05/25 16:07) Unknown Medication List - Last Reconciled 05/05/25 by Ruthy Hutchinson NP-C albuterol sulfate 90 mcg/actuation 2 puffs inhalation Q4-6H PRN buprenorphine-naloxone 8-2 mg 2 film sublingual DAILY 30 days simvastatin 20 mg PO BEDTIME HPI Comments Details: The patient is a 59-year-old male attending a follow-up visit. He is currently managed on buprenorphine-naloxone 8-2 mg twice daily for a history of opioid use disorder, which he describes as well controlled. He states he is doing good with his current regimen. Denies opiate, alcohol, and other substances at present, visit. Reports smoking 1 pack of cigarettes per day, education provided re: reducing the amount of cigarettes per day and/or smoking cessation with assistance of nicotine aids, patient declines. [facility] Medical History High cholesterol Opioid use disorder Surgical History History of nephrectomy, left History of hand surgery Family History Father Cancer Diabetes Mother No problems noted. Brother No problems noted. Son No problems noted. Social History Substance Use Type: Former Substance User Review of Systems Const All systems reviewed & are unremarkable except as noted in HPI and below Physical Exam Vital Signs: Last Vital Signs Pulse 94 05/05/25 16:06 BP 150/82 H 05/05/25 16:06 Pulse Ox 96 05/05/25 16:06 BMI result Body Mass Index 35.1 Const General: cooperative Psych Appearance: grossly normal Mental Status: mental status grossly normal Speech and movement: Normal speech and movement present Affect: normal affect Attitude: cooperative Thought process: Normal thought process present Thought content: Normal thought content present Insight: Good insight present (Psych) Judgement: Good judgement present (Psych) Assessment & Plan Assessment & Plan (1) Opioid use disorder, moderate, in sustained remission: Comment: He is doing well Code(s): F11.21 - Opioid dependence, in remission Category: Medical Plan The patient's buprenorphine-naloxone, 8-2 mg twice daily, continues to control his opioid use disorder effectively. No medication adjustments were necessary and ongoing monitoring and consultations will ensure ongoing suitability of this treatment. Medications: Refilled buprenorphine-naloxone 8-[address] 1 film on inside of (each) cheek 2 film sublingual DAILY 60 ea 2RF 30 days Patient Instructions: - Take buprenorphine-naloxone 8-2 mg, twice per day. - Aim to reduce cigarette smoking; consider available cessation aids and counseling. - Communicate any changes in health or medication reactions immediately. - Report any new or worsening symptoms. - Follow up in three months or sooner. if needed. Scribe Plan - Not visible on output: Patient was informed and verbally consented to the use of an ambient scribe for clinical note documentation during this visit. Coding Level of Care Code Est Pt Level 3 (21619) Diagnoses Opioid use disorder, moderate, in sustained remission F11.21
--- OUTSIDE RECORDS SUMMARY | 2025-05-05 16:56 | XMS_ITS | Patient Health Record ---
Author Organization [facility] Address [address] [place] [address] Care Team Providers Care Collection Teller Name Role Phone Abisai (RETIRED) Gregory WILSON Primary Care Provider Unavailable Amrit Nielsen Unavailable [phone] Allergies No Known Allergies Reason For Referral [...] Problem Screening for malignant neoplasm of colon (227365282) Encounter for screening for malignant neoplasm of colon (Z12.11) Active confirmed Problem Pre-procedure evaluation check (055218706) Encounter for other preprocedural examination (Z01.818) Active confirmed Plan Of Treatment Future Test Test Name Order Date COLONOSCOPY 04/06/2022 Insurance Providers Payer Name Payer Address Payer Phone Subscriber Number Group Number Insured Name Patient Relationship to Insured Coverage Start Date Coverage End Date [facility] [address] [facility] [phone] [id number] JONATHAN PELLETIER Self - patient is the insured Medical (General) History Medical History History ICD Code Renal cancer on the left--surgery as bel ow Hyperlipidemia Allergies Denies [place],DM,CVA,Lung disease,renal dise ase Surgical History Surgery Date(Month/Year) Right hand surgery for osteomyelitis Left nephrectomy for cancer in 2007
== END 2025-05-05 16:20 | disposition home or self-care (01) ==
PROVIDERS: PCP Internal Medicine; Visit Provider Clinical Nurse Specialist Psychiatric/Mental Health
DX: F11.21 Opioid dependence, in remission (principal)
CPT/HCPCS: 99213

== ENCOUNTER 2025-07-31 14:51 | Outpatient (AMB) | payer OTHER, SELFPAY ==
--- NOTE | 2025-07-31 14:49 | A.OFFPC_ITS ---
Vital Signs 07/31/25 14:55 Height 5 ft 6.54 in Weight 219 lb 4 oz BMI 34.8 BP 161/89 H Blood Pressure Location Lt brachial Position Sitting Respiration 16 Pulse 104 H Pulse Source Pulse Oximeter Temp 98.2 F Temp Source Temporal Artery Scan Pulse Oximetry (%) 96 Oxygen Delivery Method Room Air Intake Visit Reasons: establish care Laborer [employer] Required: No Accompanied by: Self / Same As Patient Allergies No Known Allergies (No Known Allergies*) Allergy (Verified 07/31/25 16:53) latex tape Allergy (Unknown, Uncoded 07/31/25 16:53) Unknown Medication List - Last Reconciled 07/31/25 by Estephania Lloyd PA-C albuterol sulfate 90 mcg/actuation 2 puffs inhalation Q4-6H PRN amoxicillin-pot clavulanate 875-125 mg 1 tab PO BID 10 days blood pressure test kit-large check blood pressure daily buprenorphine-naloxone 8-2 mg 2 film sublingual DAILY 30 days codeine-guaifenesin 10-100 mg/5 mL 5 mL PO Q6H PRN lisinopril 10 mg PO DAILY 90 days prednisone 40 mg (2 x 20 mg) PO DAILY 5 days simvastatin 20 mg PO BEDTIME Dental Screening Dental Screen Date: 07/31/25 Did you have a dental visit in the last 12 months?: No Did you have a dental problem in the last 6 months where you did not have access to dental care?: No Was dental information given to patient?: Patient has dentist HPI establish care HPI Details The patient is a 60-year-old male presenting for a new patient appointment to establish a new PCP presenting with a dry cough and elevated blood pressure. The cough began yesterday around noon and is described as dry. 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 The patient has a history of Chronic Obstructive Pulmonary Disease (COPD), for which he uses an albuterol inhaler. He is a smoker, which may exacerbate his respiratory condition. He also has hyperlipidemia, managed with simvastatin, although he admits to non-adherence with this medication. The patient has a history of kidney cancer, diagnosed in 2007, which led to the removal of his left kidney. He followed up with nephrology for 12 years post- surgery, with no recurrence noted. The patient reports a family history of melanoma, although no immediate family members have had colon cancer. He has not undergone a colonoscopy due to scheduling conflicts, but a stool test for colon cancer screening is planned. 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 He canceled his recent appointment due to his current illness. The patient has been experiencing elevated blood pressure readings, with a noted measurement of 160/90 mmHg, indicating stage 2 hypertension. He has not been previously treated for hypertension. Social History - Employment: Works as a electric welder, [employer] around other people. - Tobacco use: Smoker, which may exacerb ate respiratory conditions. [facility] Medical History (Updated 07/31/25 @ 16:58 by Estephania Lloyd PA-C) Bacterial pneumonia Preventative health care Hyperlipidemia Hypertension COPD (chronic obstructive pulmonary disease) Cough High cholesterol Opioid use disorder Surgical History History of nephrectomy, left History of hand surgery Family History Father Cancer Diabetes Mother No problems noted. Brother No problems noted. Son No problems noted. Social History Housing: House Patient Tobacco Use Status: Current everyday Tobacco user Tobacco use type: Cigarette Cigarette Packs Per Day: 1 Substance Use Type: Former Substance User service: No Current occupational status: employed Current occupation: [employer], electric welder Current occupational exposures/hazards: Yes Cognitive needs: No Hearing needs: No Vision needs: Yes (rx glasses) Questionnaire PHQ-9 Over the last 2 weeks, how often have you been bothered by any of the following problems? 1. Little interest or pleasure in doing things: not at all 2. Feeling down, depressed, or hopeless: not at all 3. Trouble falling or staying asleep, or sleeping too much: not at all 4. Feeling tired or having little energy: not at all 5. Poor appetite or overeating: not at all 6. Feeling bad about yourself - or that you are a failure or have let yourself or your family down: not at all 7. Trouble concentrating on things, such as reading the newspaper or watching television: not at all 8. Moving or speaking so slowly that other people could have noticed. Or the opposite - being so fidgety or restless that you have been moving around a lot more than usual: not at all 9. Thoughts that you would be better off or of hurting yourself in some way: not at all Total score: 0 Depression Screening Interpretation: Negative Depression Screening Done: Yes 90402 - PHQ-9 Billing: Yes Source: Developed by Drs. Amrit Strickland, Carrie Monroe, Trent Lyman and colleagues, with an educational sheryl from [employer]. Thrive Questionnaire Date Thrive assessed: 07/31/25 What is your living situation today?: I have a steady place to live Within the past 12 months, did the food you bought not last and you didn't have the money to get more?: Never true Within the past 12 months, did you worry whether your food would run out before you got money to buy more?: Never true Do you have trouble paying for medicines?: No Do you have trouble getting transportation to medical appointments?: No Do you have trouble paying your heating and electricity bill?: No Do you have trouble taking care of your child, family member or friend?: No Do you have trouble with day-to-day activities such as bathing, preparing meals, shopping, managing finances, etc.?: No Are you currently unemployed and looking for a job?: No Are you interested in more education?: No Please select the resources that you would like help with: None THRIVE Score: 0 AUDIT C Alcohol Use Questionnaire (AUDIT-C) 1. How often do you have a drink containing alcohol?: Never 3. How often do you have six or more drinks on one occasion?: Never Total Score: 0 Score Reviewed/Action Taken: No LUCIAN-7 AMB Questionnaire LUCIAN-7 Date LUCIAN - 7 assessed: 07/31/25 Feeling nervous, anxious, or on edge: 0 = Not at all Not being able to stop or control worryin = Not at all Worrying too much about different things: 0 = Not at all Trouble relaxin = Not at all Being so restless that it is hard to sit still: 0 = Not at all Becoming easily annoyed or irritable: 0 = Not at all Feeling afraid as if something awful might happen: 0 = Not at all Total LUCIAN-7 score (0-4 normal; 5-9 mild; 10-14 moderate; 15-21 severe): 0 Source: Developed by Drs. Amrit Strickland, Carrie Monroe, Trent Lyman and colleagues, with an educational sheryl from [employer]. LUCIAN-7 Assessment Billing LUCIAN-7 Assessment Tool: LUCIAN-7 Assessment 20976 Review of Systems Const Details: - Respiratory: Reports dry cough since yesterday. Denies dyspnea except when coughing. - Cardiovascular: Reports elevated blood pressure readings. Denies chest pain or palpitations. - Gastrointestinal: Denies abdominal pain, black or bloody stools. - Neurological: Denies headaches or dizziness. - Musculoskeletal: Denies leg swelling. All systems reviewed & are unremarkable except as noted in HPI and below Physical exam (Primary Care) Vital Signs: Last Vital Signs Temp 98.2 F 07/31/25 14:55 Pulse 104 H 07/31/25 14:55 Resp 16 07/31/25 14:55 BP 161/89 H 07/31/25 14:55 Pulse Ox 96 07/31/25 14:55 Oxygen Delivery Method Room Air 07/31/25 14:55 Care Plan Goal for BP management: <140/90 pt will be started on lisinopril 10 mg daily an return in 1-2 months BMI result Body Mass Index 34.8 BMI Assessment/Plan discussion: High BMI High, discussed plan: lifestyle, weight reduction, dietary, physical activity, alcohol moderation and other Tobacco/Smoking Status: Tobacco use Status Patient Tobacco Use Status Current everyday Tobacco 07/31/25 15:02 Tobacco use type Cigarette 07/31/25 15:02 PHQ-9: PHQ-9 Score PHQ-9: Total score 0 07/31/25 14:54 Depression Screening Interpretation: Negative Thrive Assessment: Date of Thrive Assessment Date Thrive assessed 07/31/25 07/31/25 14:54 Const Other: Appearance: Alert. Oriented X3. No acute distress. Head: Normal external exam. Normocephalic. Atraumatic. Eyes: Pupils are equal, round, and reactive to light. Extraocular movements intact. Conjunctiva and sclera normal. Eyelids normal. Ears: External auditory canal normal. Tympanic membranes normal. Throat: Pharynx normal. Uvula midline. Moist mucous membranes. Throat is a little red. Neck: Normal inspection. Neck supple. Full range of motion. No adenopathy. Thyroid Normal. No meningeal signs. No neck mass noted. Cardiovascular: Normal heart rate and rhythm. Heart sound normal. No murmurs noted. Pulses normal throughout. EKG showed sinus tachycardia with left axis deviation. Respiratory: No respiratory distress. Painless inspiration. Breath sounds normal. No wheezes/rales/rhonchi noted. Chest nontender. No accessory muscle usage noted or decreased air movement noted. Abdomen: Soft and nontender. Bowel sounds normal in all 4 quadrants. No distention noted. No organomegaly noted. No visible injury noted. Back: No costovertebral angle tenderness. Full range of motion noted. Skin: Skin warm and dry. Normal skin color. Normal skin turgor. No rashes/lesions/lacerations noted. Extremities: No lower extremity edema. Extremities exhibit normal range of motion. Extremities nontender. Neuro: Oriented X 3. No motor deficit. No sensory deficit. Reflexes normal. Office Procedures EKG Details: EKG sinus tachycardia with a ventricular rate of 105 with L[address] with nonspecific ST-T changes no acute ischemic change are noted. Dr. Mathew agree with this via [employer] [id number], Complete Results Reviewed Results Reviewed: - EKG: Sinus tachycardia with left axis deviation Coding Level of Care Code New Pt Level 4 (51337) Complex EM visit Add On G2211 Diagnoses COPD (chronic obstructive pulmonary disease) J44.9 Hypertension I10 Hyperlipidemia E78.5 [facility] care Z00.00 Bacterial pneumonia J15.9 CPT Codes EKG - CPT: 91731-[id number], Complete ([id number]) Additional Codes PHQ-9 - 50799 - PHQ-9 Billing: Yes ([id number]) LUCIAN-7 Assessment Billing - LUCIAN-7 Assessment Tool: LUCIAN-7 Assessment 49225 ([id number]) Time Spent (min) 50 Assessment & Plan Assessment & Plan (1) COPD (chronic obstructive pulmonary disease): Code(s): J44.9 - Chronic obstructive pulmonary disease, unspecified Category: Medical Plan: The patient will continue using his albuterol inhaler as needed for COPD management. Smoking cessation was discussed as a critical component of managing his respiratory condition. (2) Hypertension: Code(s): I10 - Essential (primary) hypertension Category: Medical Plan: The patient will start on lisinopril to manage his hypertension, with a follow- up blood pressure check in one month. A blood pressure cuff will be prescribed for home monitoring. (3) Hyperlipidemia: Code(s): E78.5 - Hyperlipidemia, unspecified Category: Medical Plan: The patient is advised to restart simvastatin for hyperlipidemia management. (4) Preventative health care: Code(s): Z00.00 - Encounter for general adult medical examination without abnormal findings Category: Medical Plan: A stool test for colon cancer screening will be sent to the patient's home. If the test is negative, a colonoscopy may not be necessary. (5) Bacterial pneumonia: Code(s): J15.9 - Unspecified bacterial pneumonia Category: Medical Plan: The patient will be treated with Augmentin for suspected bacterial pneumonia. A probiotic is recommended to prevent antibiotic-associated diarrhea. Plan Plan Patient was informed and verbally consented to the use of an ambient scribe for clinic note documentation during this visit. 1. Chronic Obstructive Pulmonary Disease (Copd) The patient will continue using his albuterol inhaler as needed for COPD management. Smoking cessation was discussed as a critical component of managing his respiratory condition. 2. Hypertension The patient will start on lisinopril to manage his hypertension, with a follow- up blood pressure check in one month. A blood pressure cuff will be prescribed for home monitoring. 3. Hyperlipidemia The patient is advised to restart simvastatin for hyperlipidemia management. 4. Preventative Care: Colon Cancer Screening A stool test for colon cancer screening will be sent to the patient's home. If the test is negative, a colonoscopy may not be necessary. 5. Bacterial Pneumonia The patient will be treated with Augmentin for suspected bacterial pneumonia. A probiotic is recommended to prevent antibiotic-associated diarrhea. I discussed with the patient the management of his COPD, emphasizing the importance of smoking cessation. We reviewed the plan to start lisinopril for hypertension and the need for regular blood pressure monitoring at home. The patient was informed about the stool test for colon cancer screening and the implications of the results. We also discussed the use of Augmentin for his respiratory symptoms and the importance of taking a probiotic to prevent diarrhea. Orders: Orders Complete Blood Count Auto Diff Today Z00.00 - Encounter for general adult medical examination without abnormal findings Comprehensive [employer] Panel Fast Today Z00.00 - Encounter for general adult medical examination without abnormal findings Hemoglobin A1c Today Z00.00 - Encounter for general adult medical examination without abnormal findings Lipid Panel Today Z00.00 - Encounter for general adult medical examination without abnormal findings Magnesium Today Z00.00 - Encounter for general adult medical examination without abnormal findings Vitamin B12 and Folate Today Z00.00 - Encounter for general adult medical examination without abnormal findings UA CC w/rflx Micro + Cult Today Z00.00 - Encounter for general adult medical examination without abnormal findings TSH reflex Free T4 Today Z00.00 - Encounter for general adult medical examination without abnormal findings XR chest 2V Today R05.9 - Cough, unspecified C Reactive Protein Today Z00.00 - Encounter for general adult medical examination without abnormal findings Erythrocyte Sedimentation Rate Today Z00.00 - Encounter for general adult medical examination without abnormal findings Liver Panel Today Z00.00 - Encounter for general adult medical examination without abnormal findings Vitamin D 25-OH Total Today Z00.00 - Encounter for general adult medical examination without abnormal findings PSA,Total (Free>4and<10) Today Z00.00 - Encounter for general adult medical examination without abnormal findings NT Pro B Type Natriuretic Pept Today R05.9 - Cough, unspecified Referrals Cologuard Test Z12.11 - Encounter for screening for malignant neoplasm of col on, Z12.12 - Encounter for screening for malignant neoplasm of rectum Medications: New amoxicillin-pot clavulanate 875-125 mg 1 tab PO BID 20 tabs 0RF 10 days prednisone 40 mg (2 x 20 mg) PO DAILY 10 tabs 0RF 5 days blood pressure test kit-large check blood pressure daily 1 ea 0RF lisinopril 10 mg PO DAILY 90 tabs 1RF 90 days codeine-guaifenesin 10-100 mg/5 mL 5 mL PO Q6H PRN 120 mL 0RF cough blood pressure test kit-large check blood pressure daily 1 ea 0RF Patient Instructions: - Continue using albuterol inhaler as needed. - Start lisinopril as prescribed and monitor blood pressure at home. - Restart simvastatin for cholesterol management. - Complete the course of Augmentin and take a probiotic to prevent diarrhea. - Complete the stool test for colon cancer screening as instructed. - Schedule a follow-up appointment in one month for blood pressure check.
[2025-07-31 14:55] VITALS: BP 161/89; PULSE 104; RESP 16; TEMP 36.8; O2SAT 96; BMI 34.8
== END 2025-07-31 15:50 | disposition home or self-care (01) ==
LOC: HO.HMCSH 14:51
PROVIDERS: PCP Internal Medicine; Visit Provider Physician Assistant Medical
DX: J44.9 Chronic obstructive pulmonary disease, unspecified (principal); I10 Essential (primary) hypertension; E78.5 Hyperlipidemia, unspecified; Z00.00 Encounter for general adult medical examination without abnormal findings; J15.9 Unspecified bacterial pneumonia

== ENCOUNTER → 2025-07-31 14:51 | Outpatient (BNVA) | payer OTHER, SELFPAY | PROVIDERS: PCP Internal Medicine; Visit Provider Physician Assistant Medical | DX: Z76.89 Persons encountering health services in other specified circumstances (principal); J44.9 Chronic obstructive pulmonary disease, unspecified; I10 Essential (primary) hypertension; E78.5 Hyperlipidemia, unspecified; J15.9 Unspecified bacterial pneumonia; Z79.899 Other long term (current) drug therapy; Z13.31 Encounter for screening for depression; Z13.39 Encounter for screening examination for other mental health and behavioral disorders | CPT/HCPCS: 93005; 96127 ==

== ENCOUNTER 2025-08-05 14:39 | Outpatient (REF) | payer OTHER, SELFPAY ==
--- NOTE | ~2025-08-05 | XR_ITS ---
EXAMINATION: XR CHEST CLINICAL INFORMATION: R05.9 - Cough, unspecified COMPARISON: 09/22/2020 TECHNIQUE: 2 views of the chest were obtained. FINDINGS: There are coarse lung markings similar to the prior. Lungs are clear otherwise. There is no sign of pleural effusion. Flowing osteophytes are present in the thoracic spine. XR/XR chest 2V IMPRESSION: No acute disease. Mild degenerative changes in the thoracic spine consistent with diffuse idiopathic skeletal hyperostosis (DISH) Electronically signed by: Jamar Rudd MD 08/05/2025 02:58 PM EDT
[2025-08-05 16:23] LABS: MANUAL DIFF FLAG NO
[2025-08-05 16:32] LABS: Appearance Urine Clear; Glucose Urine UA Negative (Negative); PH 6.5 (5.0-9.0); Specific Gravity - Urine 1.015 (1.005-1.025); UMIC TRIGGER UACC YES
[2025-08-05 16:38] LABS: Hematocrit 47.8 % (42.0-52.0); Hemoglobin 16.4 g/dl (14.0-18.0); Imm Gran Abs Auto 0.04 X10*3/uL (0.00-0.03); Imm Gran Pct Auto 0.4 % (0.0-0.4); Lymphocytes Absolute Auto 3.4 X10*3/uL (1.2-4.9); Mean Corpuscular HGB Conc 34.3 g/dl (31.0-36.0); Mean Corpuscular Hemoglobin 30.8 pg (27.0-33.0); Mean Corpuscular Volume 89.7 fL (80.0-98.0); NRBC Abs Auto 0.000 X10*3/uL (0.0-0.012); NRBC Pct Auto 0.0 /100WBC (0.0-0.2); Platelet Count 348 X10*3/uL (160-400); Red Blood Count 5.33 X10*6/uL (4.60-5.80); White Blood Count 11.3 X10*3/uL (4.8-10.8)
[2025-08-05 17:01] LABS: NT Pro B Type Natriuretic Pept 195.3 pg/mL (<300)
[2025-08-05 17:21] LABS: PSA,Total (Free>4and<10) 1.41 ng/mL (0.00-4.00)
[2025-08-05 17:31] LABS: Alanine Aminotransferase 27 U/L (0-40); Albumin Level 4.0 g/dL (3.5-5.0); Alkaline Phosphatase 92 U/L (39-117); Anion Gap 14 (12-20); Aspartate Amino Transferase 32 U/L (5-37); Blood Urea Nitrogen 17 mg/dL (9-16); Calcium 9.1 mg/dL (8.4-10.2); Carbon Dioxide 26 mmol/L (22-29); Chloride 104 mmol/L (96-108); Cholesterol 192 mg/dL (<200); Estimated Glomerular Filt Rate > 60; HDL Cholesterol 39 mg/dL (>40); Magnesium 2.1 mg/dL (1.6-2.6); Potassium 4.2 mmol/L (3.3-5.1); Sodium 140 mmol/L (135-145); Total Protein 7.1 g/dL (6.5-8.0); Triglycerides 154 mg/dL (<150)
--- OUTSIDE RECORDS SUMMARY | 2025-08-05 17:32 | XMS_ITS | Patient Health Record ---
Author Organization [facility] Address [address] [place] [address] Care Team Providers Care Draw Frame Runner Name Role Phone Abisai (RETIRED) Gregory WILSON Primary Care Provider Unavailable Amrit Nielsen Unavailable [phone] Allergies No Known Allergies Reason For Referral No Information Medications Medication SIG (Take, Route, Fr equency, Duration) Notes Start Date End Date Status Lipitor 20 MG 1 tablet Orally Once a day; Duration: 30 day(s) Active Ibuprofen 800 MG 1 tablet with food o r milk as needed Orally every 8 hrs Active ZyrTEC 10 MG 1 tablet Orally Once a day; Duration: 30 day(s) Active Immunizations Vaccine Route Administration [...] Problem Screening for malignant neoplasm of colon (875231221) Encounter for screening for malignant neoplasm of colon (Z12.11) Active confirmed Problem Pre-procedure evaluation check (811199688) Encounter for other preprocedural examination (Z01.818) Active confirmed Plan Of Treatment Future Test Test Name Order Date COLONOSCOPY 04/06/2022 Insurance Providers Payer Name Payer Address Payer Phone Subscriber Number Group Number Insured Name Patient Relationship to Insured Coverage Start Date Coverage End Date [facility] [address] [facility] [phone] [id number] JONATHAN PELLETIER Self - patient is the insured Medical (General) History Medical History History ICD Code Renal cancer on the left--surgery as bel ow Hyperlipidemia Allergies Denies HI,DM,CVA,Lung disease,renal dise ase Surgical History Surgery Date(Month/Year) Right hand surgery for osteomyelitis Left nephrectomy for cancer in 2007
[2025-08-05 17:33] LABS: Folate 11.2 ng/mL (> or = 4.0); Vitamin B12 622 pg/mL (200-900)
== END 2025-08-05 14:40 | disposition home or self-care (01) ==
LOC: HO.HMGCX 14:39
PROVIDERS: PCP Physician Assistant Medical; Visit Provider Physician Assistant Medical
DX: Z00.00 Encounter for general adult medical examination without abnormal findings (principal); R05.9 Cough, unspecified; Z12.5 Encounter for screening for malignant neoplasm of prostate; Z13.1 Encounter for screening for diabetes mellitus; Z13.21 Encounter for screening for nutritional disorder; Z13.29 Encounter for screening for other suspected endocrine disorder; Z13.6 Encounter for screening for cardiovascular disorders
CPT/HCPCS: 36415; 71046; 80048; 80061; 80076; 81001; 82306; 82607; 82746; 83036; 83735; 83880; 84153; 84443; 85025; 85027; 85652; 86140

== ENCOUNTER → 2025-08-05 14:42 | Outpatient (BNV) | payer OTHER, SELFPAY | PROVIDERS: PCP Physician Assistant Medical; Visit Provider Radiology Diagnostic Radiology | DX: M47.814 Spondylosis without myelopathy or radiculopathy, thoracic region (principal) | CPT/HCPCS: 71046 ==

== ENCOUNTER 2025-08-13 15:25 | Outpatient (AMB) | payer OTHER, SELFPAY ==
--- NOTE | 2025-08-13 15:44 | MHC.OFFVIS ---
Vital Signs 08/13/25 15:45 Height 5 ft 7 in Weight 220 lb BMI 34.5 BP 142/80 H Pulse 94 Pulse Oximetry (%) 98 Intake Visit Reasons: MAT Allergies No Known Allergies (No Known Allergies*) Allergy (Verified 08/13/25 15:46) latex tape Allergy (Unknown, Uncoded 08/13/25 15:46) Unknown HPI Comments Details: History of Present Illness The patient is a 60-year-old male presenting with substance use disorder. He has been using buprenorphine E/2 BID, which has been effective. The patient consents to the use of [employer] technology for documentation. He reports no adverse effects such as constipation, depression, or ideations of harm. The management of the substance use disorder appears to be stable with the current treatment. Review of Systems - General: Denies any current complaints. - Gastrointestinal: Denies constipation. - Psychiatric: Denies depression, homicidal or suicidal ideation. Physical Exam - Vital Signs- Stable. Results Plan Patient was informed and verbally consented to the use of an ambient scribe for clinic note documentation during this visit. 1. Substance Use Disorder The patient's current management involves buprenorphine E/2 BID, which is effective. No need for counseling at this time, regular follow-up required. Discussion Notes I discussed with the patient the management of substance use disorder and the effectiveness of the current treatment with buprenorphine E/2 BID. The patient consented to the documentation process and reported satisfaction with the treatment, noting the absence of side effects. We reviewed the importance of adherence to the current medication plan and agreed on follow-up visits to monitor progress. Counseling services are not required at this time as the patient is doing well. Medical Decision Making My clinical decision-making centers on the management of the patient's substance use disorder, for which buprenorphine E/2 BID has been prescribed. The patient is responding well to the treatment, with no reported complaints or side effects. Given these considerations, I plan to continue the current treatment approach. No need for additional interventions such as counseling, as the substance use disorder is stable under the existing regimen. Regular follow-up appointments are necessary to ensure continued therapeutic success and to adjust treatment as needed. Patient Instructions - Keep taking your medication as prescribed. - Follow up as scheduled. - Report any side effects or new symptoms. - You do not need counseling right now. [facility] Medical History (Updated 08/07/25 @ 17:07 by Estephania Lloyd PA-C) Protein in urine Family history of melanoma Family history of bladder cancer History of primary malignant neoplasm of left kidney Bacterial pneumonia Preventative health care Hyperlipidemia Hypertension COPD (chronic obstructive pulmonary disease) Cough High cholesterol Opioid use disorder Surgical History History of nephrectomy, left History of hand surgery Family History Father Cancer Diabetes Mother No problems noted. Brother No problems noted. Son No problems noted. Social History Housing: House Patient Tobacco Use Status: Current everyday Tobacco user Tobacco use type: Cigarette Cigarette Packs Per Day: 1 Substance Use Type: Former Substance User service: No Current occupational status: employed Current occupation: [employer], welder fitter Current occupational exposures/hazards: Yes Cognitive needs: No Hearing needs: No Vision needs: Yes (rx glasses) Physical Exam Vital Signs: Last Vital Signs Pulse 94 08/13/25 15:45 BP 142/80 H 08/13/25 15:45 Pulse Ox 98 08/13/25 15:45 BMI result Body Mass Index 34.5 Assessment & Plan Assessment & Plan (1) Opioid use disorder, moderate, in sustained remission: Comment: He is doing well Code(s): F11.21 - Opioid dependence, in remission Category: Medical Plan: na Plan na Medications: New buprenorphine-naloxone 8-2 mg (Suboxone) 1 film sublingual BID 60 ea 2RF 30 days Coding Level of Care Code Est Pt Level 3 (14135) Diagnoses Opioid use disorder, moderate, in sustained remission F11.21
[2025-08-13 15:45] VITALS: BP 142/80; PULSE 94; O2SAT 98; BMI 34.5
--- OUTSIDE RECORDS SUMMARY | 2025-08-13 21:39 | XMS_ITS | Patient Health Record ---
Author Organization [facility] Address [address] [place] [address] Care Team Providers Care Dado Operator Name Role Phone Abisai (RETIRED) Gregory WILSON Primary Care Provider Unavailable Amrit Nielsen Unavailable [phone] Allergies No Known Allergies Reason For Referral [...] Problem Screening for malignant neoplasm of colon (085844675) Encounter for screening for malignant neoplasm of colon (Z12.11) Active confirmed Problem Pre-procedure evaluation check (905588405) Encounter for other preprocedural examination (Z01.818) Active confirmed Plan Of Treatment Future Test Test Name Order Date COLONOSCOPY 04/06/2022 Insurance Providers Payer Name Payer Address Payer Phone Subscriber Number Group Number Insured Name Patient Relationship to Insured Coverage Start Date Coverage End Date [facility] [address] [facility] [phone] [id number] JONATHAN PELLETIER Self - patient is the insured Medical (General) History Medical History History ICD Code Renal cancer on the left--surgery as bel ow Hyperlipidemia Allergies Denies CT,DM,CVA,Lung disease,renal dise ase Surgical History Surgery Date(Month/Year) Right hand surgery for osteomyelitis Left nephrectomy for cancer in 2007
== END 2025-08-13 16:45 | disposition home or self-care (01) ==
LOC: HO.HCC 15:25
PROVIDERS: PCP Physician Assistant Medical; Visit Provider Internal Medicine
DX: F11.21 Opioid dependence, in remission (principal)
CPT/HCPCS: 99213